=== PATIENT | female | born 1945 | race Caucasian/White ===

== ENCOUNTER 2019-10-05 07:01 | Inpatient (IN) ==
[2019-10-05 08:27] LABS: Basophils # 0.1 10*3/uL (0.0-0.2); Basophils % 0.7 % (0.0-0.8); Eosinophils # 0.1 10*3/uL (0.0-0.87); Eosinophils % 1.6 % (0.00-10.9); Hematocrit 37.6 VOL% (35.7-47.0); Hemoglobin 11.6 GM/DL (12.0-16.0); Immature Granulocytes % 0.3 %; Immature Granulocytes Absolute 0.02 #; Lymphocytes # 1.6 10*3/uL (1.4-4.0); Lymphocytes % 21.4 % (21.3-54.2); Mean Corpuscular HGB Conc 30.9 GM/DL (32-36); Mean Corpuscular Volume 89.7 FL (87-102); Mean Platelet Volume 9.5 FL (9.6-12.0); Monocytes % 10.4 % (1.7-12.7); Neutrophils % 65.6 % (38.7-73.9); Platelet Count 183 T/CUMM (130-400); Red Blood Count 4.19 MC/CUMM (3.8-5.5); Red Cell Distribution Width 13.8 % (9.3-17.3); White Blood Count 7.7 T/CUMM (4-12)
[2019-10-05 08:44] LABS: INR 1.1; PT Patient Result 11.4 SECS (9.6-12.2)
[2019-10-05 08:48] LABS: Apearance,Urine CLEAR (Clear); Bilirubin,Urine Negative (Negative); Blood, Urine Negative (Negative); Glucose,Urine (UA) Negative (Negative); Hyaline Casts,Urine 3 /LPF (0-3); Ketones,Urine 20 mg/dL (Negative); Mucus,Urine Occasional /LPF (Occasional); Nitrite,Urine Negative (Negative); Protein,Urine 30 MG/DL; RBC,Urine 1 /HPF (0-4); Squamous Epithelial Cell,Urine Occasional /HPF (0-10); Urine Color Yellow (Yellow); Urine Specific Gravity 1.025 (1.001-1.035); Urine Urobilinogen < 2.0 EU/DL (0.2-1.0); WBC,Urine 2 /HPF (0-6)
[2019-10-05 09:08] LABS: Albumin 3.4 G/DL (3.4-5.0); Bilirubin,Total 0.9 MG/DL (0.2-1.0); Calcium 9.2 MG/DL (8.5-10.1); Osmolality,Calculated 274.1 MOS/KG (273-304); Total Protein 6.6 G/DL (6.4-8.3)
[2019-10-05] MEDS: SODIUM CHLORIDE 0.9% 1,000 ML IV SCH (14:27)
[2019-10-05] MEDS: ENOXAPARIN 40 MG/0.4 ML SYRINGE SUBCUT SCH (14:27)
[2019-10-05] MEDS ORDERED: SODIUM CHLORIDE 0.9% 500 ML IV ONE (15:02)
[2019-10-05] MEDS ORDERED: DEXTROSE 50% 25 GM/50 ML VIAL IV PRN (15:05)
[2019-10-05] MEDS ORDERED: GLUCAGON 1 MG VIAL IM PRN (15:05)
[2019-10-05] MEDS: INSULIN REGULAR 100 UNIT/ML SUBCUT SCH ×2 (17:15→22:37)
[2019-10-05] MEDS: ONDANSETRON 4 MG/2 ML VIAL IV PRN (17:26)
[2019-10-05] MEDS: ALBUTEROL/IPRATROPIUM 3 ML NEB RESP TX SCH (20:26)
[2019-10-05] MEDS ORDERED: ATORVASTATIN 40 MG TABLET PO SCH (21:00)
[2019-10-05] MEDS: MAGNESIUM OXIDE 400 MG TABLET PO SCH (22:36)
[2019-10-05] MEDS: POTASSIUM CHLORIDE 10 MEQ TABLET PO SCH (22:37)
[2019-10-05] MEDS: CETIRIZINE 10 MG TABLET PO SCH (22:37)
[2019-10-05] MEDS: GABAPENTIN 600 MG TABLET PO SCH (22:37)
[2019-10-06] MEDS: ALBUTEROL/IPRATROPIUM 3 ML NEB RESP TX SCH ×4 (00:40→19:41)
[2019-10-06] MEDS: SODIUM CHLORIDE 0.9% 1,000 ML IV SCH ×2 (02:34→17:56)
[2019-10-06 02:55] LABS: Basophils % 0.7 % (0.0-0.8); Eosinophils # 0.1 10*3/uL (0.0-0.87); Eosinophils % 2.4 % (0.00-10.9); Hematocrit 31.4 VOL% (35.7-47.0); Hemoglobin 9.7 GM/DL (12.0-16.0); Lymphocytes # 1.9 10*3/uL (1.4-4.0); Lymphocytes % 41.2 % (21.3-54.2); Mean Corpuscular HGB Conc 30.9 GM/DL (32-36); Mean Corpuscular Volume 88.5 FL (87-102); Mean Platelet Volume 10.2 FL (9.6-12.0); Monocytes % 12.5 % (1.7-12.7); Neutrophils % 43.2 % (38.7-73.9); Platelet Count 142 T/CUMM (130-400); Red Blood Count 3.55 MC/CUMM (3.8-5.5); Red Cell Distribution Width 13.7 % (9.3-17.3); White Blood Count 4.6 T/CUMM (4-12)
[2019-10-06 03:39] LABS: Bilirubin,Total 0.6 MG/DL (0.2-1.0); Calcium 8.2 MG/DL (8.5-10.1); Osmolality,Calculated 282.1 MOS/KG (273-304); Total Protein 5.8 G/DL (6.4-8.3)
[2019-10-06 03:45] LABS: Risk Ratio 1.74; VLDL CHOLESTEROL 15.2 MG/DL
[2019-10-06] MEDS ORDERED: SODIUM CHLORIDE 0.9% 500 ML IV ONE (07:14)
[2019-10-06] MEDS ORDERED: MORPHINE INTRATHEC SCH (09:00)
[2019-10-06] MEDS ORDERED: VENLAFAXINE XR 75 MG CAPSULE PO SCH (09:00)
[2019-10-06] MEDS ORDERED: PROPRANOLOL LA 80 MG CAPSULE PO SCH (09:00)
[2019-10-06] MEDS ORDERED: DIVALPROEX ER 250 MG TABLET PO SCH (09:00)
[2019-10-06] MEDS: ACETAMINOPHEN 325 MG TABLET PO PRN (09:16)
[2019-10-06] MEDS: MULTIVITAMIN (OCUVITE) TABLET PO SCH (09:16)
[2019-10-06] MEDS: MAGNESIUM OXIDE 400 MG TABLET PO SCH ×2 (09:16→21:52)
[2019-10-06] MEDS: GABAPENTIN 600 MG TABLET PO SCH ×2 (09:16→21:44)
[2019-10-06] MEDS: PANTOPRAZOLE 40 MG TABLET PO SCH (09:17)
[2019-10-06] MEDS: POTASSIUM CHLORIDE 10 MEQ TABLET PO SCH ×2 (09:17→21:44)
[2019-10-06] MEDS: ASPIRIN CHEW 81 MG TABLET PO SCH (09:17)
[2019-10-06] MEDS: CHOLECALCIFEROL 1,000 UNIT TABLET PO SCH (09:17)
[2019-10-06] MEDS: ONDANSETRON 4 MG/2 ML VIAL IV PRN (09:33)
[2019-10-06] MEDS: INSULIN REGULAR 100 UNIT/ML SUBCUT SCH ×4 (09:55→21:53)
[2019-10-06] MEDS: ENOXAPARIN 40 MG/0.4 ML SYRINGE SUBCUT SCH (13:32)
[2019-10-06] MEDS: CETIRIZINE 10 MG TABLET PO SCH (21:52)
[2019-10-07] MEDS: ALBUTEROL/IPRATROPIUM 3 ML NEB RESP TX SCH ×4 (01:42→19:35)
[2019-10-07 04:37] LABS: Basophils % 0.8 % (0.0-0.8); Eosinophils # 0.1 10*3/uL (0.0-0.87); Eosinophils % 2.4 % (0.00-10.9); Hemoglobin 9.6 GM/DL (12.0-16.0); Immature Granulocytes % 0.3 %; Immature Granulocytes Absolute 0.01 #; Lymphocytes # 1.5 10*3/uL (1.4-4.0); Lymphocytes % 40.8 % (21.3-54.2); Mean Corpuscular Volume 91.4 FL (87-102); Monocytes % 11.9 % (1.7-12.7); Neutrophils % 43.8 % (38.7-73.9); Platelet Count 122 T/CUMM (130-400); Red Cell Distribution Width 13.8 % (9.3-17.3); White Blood Count 3.8 T/CUMM (4-12)
[2019-10-07 04:58] LABS: Calcium 8.5 MG/DL (8.5-10.1); Osmolality,Calculated 281.1 MOS/KG (273-304)
[2019-10-07] MEDS: INSULIN REGULAR 100 UNIT/ML SUBCUT SCH ×4 (09:02→21:56)
[2019-10-07] MEDS: MULTIVITAMIN (OCUVITE) TABLET PO SCH (09:04)
[2019-10-07] MEDS: GABAPENTIN 600 MG TABLET PO SCH ×2 (09:04→21:57)
[2019-10-07] MEDS: PANTOPRAZOLE 40 MG TABLET PO SCH (09:04)
[2019-10-07] MEDS: CHOLECALCIFEROL 1,000 UNIT TABLET PO SCH (09:04)
[2019-10-07] MEDS: ASPIRIN CHEW 81 MG TABLET PO SCH (09:04)
[2019-10-07] MEDS: MAGNESIUM OXIDE 400 MG TABLET PO SCH ×2 (09:04→21:56)
[2019-10-07] MEDS: VENLAFAXINE XR 75 MG CAPSULE PO SCH (09:05)
[2019-10-07] MEDS: DIVALPROEX ER 250 MG TABLET PO SCH (09:05)
[2019-10-07] MEDS: POTASSIUM CHLORIDE 10 MEQ TABLET PO SCH ×2 (09:05→21:57)
[2019-10-07] MEDS: PROPRANOLOL LA 80 MG CAPSULE PO SCH (09:05)
[2019-10-07] MEDS: ENOXAPARIN 40 MG/0.4 ML SYRINGE SUBCUT SCH (14:02)
[2019-10-07] MEDS: SODIUM CHLORIDE 0.9% 1,000 ML IV SCH (20:20)
[2019-10-07] MEDS: CETIRIZINE 10 MG TABLET PO SCH (21:55)
[2019-10-08] MEDS: ALBUTEROL/IPRATROPIUM 3 ML NEB RESP TX SCH ×5 (00:31→19:49)
[2019-10-08] MEDS: SODIUM CHLORIDE 0.9% 1,000 ML IV SCH ×4 (05:54→20:06)
[2019-10-08] MEDS: ONDANSETRON 4 MG/2 ML VIAL IV PRN (06:04)
[2019-10-08] MEDS: INSULIN REGULAR 100 UNIT/ML SUBCUT SCH ×4 (09:15→21:39)
[2019-10-08] MEDS: GABAPENTIN 600 MG TABLET PO SCH ×2 (09:21→21:40)
[2019-10-08] MEDS: PROPRANOLOL LA 80 MG CAPSULE PO SCH (09:21)
[2019-10-08] MEDS: POTASSIUM CHLORIDE 10 MEQ TABLET PO SCH ×2 (09:22→21:40)
[2019-10-08] MEDS: VENLAFAXINE XR 75 MG CAPSULE PO SCH (09:22)
[2019-10-08] MEDS: DIVALPROEX ER 250 MG TABLET PO SCH (09:22)
[2019-10-08] MEDS: CHOLECALCIFEROL 1,000 UNIT TABLET PO SCH (09:23)
[2019-10-08] MEDS: PANTOPRAZOLE 40 MG TABLET PO SCH (09:23)
[2019-10-08] MEDS: MAGNESIUM OXIDE 400 MG TABLET PO SCH ×2 (09:23→21:41)
[2019-10-08] MEDS: MULTIVITAMIN (OCUVITE) TABLET PO SCH (09:23)
[2019-10-08] MEDS: ASPIRIN CHEW 81 MG TABLET PO SCH (09:23)
[2019-10-08] MEDS: ENOXAPARIN 40 MG/0.4 ML SYRINGE SUBCUT SCH (12:38)
[2019-10-08] MEDS: CETIRIZINE 10 MG TABLET PO SCH (21:41)
[2019-10-09] MEDS: SODIUM CHLORIDE 0.9% 1,000 ML IV SCH (03:25)
[2019-10-09] MEDS: ACETAMINOPHEN 325 MG TABLET PO PRN ×2 (04:45→09:37)
[2019-10-09] MEDS: ALBUTEROL/IPRATROPIUM 3 ML NEB RESP TX SCH (08:10)
[2019-10-09 08:30] VITALS: BP 131/57
[2019-10-09] MEDS: PANTOPRAZOLE 40 MG TABLET PO SCH (09:37)
[2019-10-09] MEDS: MAGNESIUM OXIDE 400 MG TABLET PO SCH (09:37)
[2019-10-09] MEDS: POTASSIUM CHLORIDE 10 MEQ TABLET PO SCH (09:37)
[2019-10-09] MEDS: CHOLECALCIFEROL 1,000 UNIT TABLET PO SCH (09:37)
[2019-10-09] MEDS: ASPIRIN CHEW 81 MG TABLET PO SCH (09:37)
[2019-10-09] MEDS: MULTIVITAMIN (OCUVITE) TABLET PO SCH (09:38)
[2019-10-09] MEDS: DIVALPROEX ER 250 MG TABLET PO SCH (09:38)
[2019-10-09] MEDS: GABAPENTIN 600 MG TABLET PO SCH (09:38)
[2019-10-09] MEDS: INSULIN REGULAR 100 UNIT/ML SUBCUT SCH ×2 (09:38→13:37)
[2019-10-09] MEDS: VENLAFAXINE XR 75 MG CAPSULE PO SCH (09:38)
[2019-10-09] MEDS: PROPRANOLOL LA 80 MG CAPSULE PO SCH (11:52)
[2019-10-09] MEDS: ENOXAPARIN 40 MG/0.4 ML SYRINGE SUBCUT SCH (13:38)
== END 2019-10-09 15:00 | disposition home health service (06) | DRG 565 ==
LOC: EDUNIT# → EDBD → N.EDINP 07:01 → N.ED 07:01 → N.EDINP 13:30 → N.TELEN 13:53 → SUATTDRO 10-06 09:15
PROVIDERS: ADMIT Hospitalist; ATTEND Internal Medicine Nephrology

== ENCOUNTER 2022-01-05 06:07 | Inpatient (IN) ==
[~2022-01-05 06:07] MED LIST: CLINDAMYCIN INJ 900 MG/50 ML PREMIX IV ONE; VANCOMYCIN INJ 1,000 MG in SODIUM CHLORIDE 0.9% 250 ML IV ONE
[2022-01-05] MEDS ORDERED: propofoL 200 MG/20 ML VIAL IV ONE (06:26)
[2022-01-05] MEDS ORDERED: KETAMINE 500 MG/10 ML VIAL ONE (06:26)
[2022-01-05] MEDS ORDERED: LIDOCAINE 2% 5 ML VIAL ONE (06:26)
[2022-01-05] MEDS ORDERED: MIDAZOLAM 2 MG/2 ML VIAL ONE (06:26)
[2022-01-05] MEDS ORDERED: ONDANSETRON 4 MG/2 ML VIAL ONE (06:26)
[2022-01-05] MEDS ORDERED: fentaNYL 100 MCG/2 ML VIAL ONE (06:26)
[2022-01-05] MEDS ORDERED: BUPIVACAINE SPINAL 0.75% 2 ML AMP SPINAL ONE (06:29)
[2022-01-05] MEDS ORDERED: BACITRACIN OINT 0.9 GM PACK TOP ONE (06:38)
[2022-01-05] MEDS ORDERED: ROCURONIUM 50 MG/5 ML VIAL IV ONE (06:50)
[2022-01-05] MEDS ORDERED: BUPIVACAINE MPF 0.5% 30 ML VIAL ONE (06:54)
[2022-01-05] MEDS ORDERED: LIDOCAINE 1% 5 ML VIAL ONE (06:54)
[2022-01-05] MEDS ORDERED: LACTATED RINGERS 1,000 ML IV SCH (07:00)
[2022-01-05] MEDS ORDERED: ePHEDrine 50 MG/ML VIAL ONE (07:39)
[2022-01-05] MEDS ORDERED: TRANEXAMIC ACID 1,000 MG/10 ML VIAL ONE (08:06)
[2022-01-05] MEDS ORDERED: ACETAMINOPHEN INJ 1,000 MG/100 ML VIAL IV ONE (08:07)
[2022-01-05] MEDS ORDERED: SEVOFLURANE 1 UNIT/15 MINUTE INH ONE (08:10)
[2022-01-05] MEDS ORDERED: GLYCOPYRROLATE 0.4 MG/2 ML VIAL ONE (08:10)
[2022-01-05] MEDS ORDERED: NEOSTIGMINE 10 MG/10 ML VIAL ONE (08:11)
[2022-01-05] MEDS ORDERED: HYDROmorphone 2 MG/1 ML VIAL ONE (08:17)
[2022-01-05] MEDS ORDERED: PHENYLEPHRINE 1 MG/10 ML SYRINGE IV ONE (08:45)
[2022-01-05] MEDS ORDERED: HYDROmorphone 2 MG/1 ML VIAL IV PRN (09:00)
[2022-01-05] MEDS ORDERED: diphenhydrAMINE CAP 25 MG CAPSULE PO PRN (09:00)
[2022-01-05] MEDS ORDERED: CARBIDOPA/LEVODOPA 25-100 MG TABLET PO SCH (09:00)
[2022-01-05] MEDS ORDERED: GLUCAGON 1 MG VIAL IM PRN ×2 (09:03→16:44)
[2022-01-05 09:31] LABS: Mucus,Urine Occasional /LPF (Occasional); RBC,Urine <1 /HPF (0-4); Squamous Epithelial Cell,Urine Occasional /HPF (0-10)
[2022-01-05 09:32] LABS: Urine Appearance Clear (Clear); Urine Color Yellow (Yellow)
[2022-01-05 09:33] LABS: Bilirubin,Urine Negative (Negative); Blood, Urine Negative (Negative); Glucose,Urine (UA) Negative (Negative); Ketones,Urine Negative (Negative); Nitrite,Urine Negative (Negative); Protein,Urine Negative; Urine Specific Gravity 1.016 (1.001-1.035); Urine Urobilinogen 0.2 EU/DL (<2.0)
[2022-01-05] MEDS: HYDROmorphone 2 MG/1 ML VIAL IV PRN ×3 (10:04→15:05)
[2022-01-05] MEDS: ONDANSETRON 4 MG/2 ML VIAL IV PRN (10:05)
[2022-01-05] MEDS ORDERED: DEXTROSE 10% 250 ML BAG IV PRN ×2 (11:11→16:45)
[2022-01-05] MEDS ORDERED: PROMETHAZINE 25 MG TABLET PO PRN (12:00)
[2022-01-05] MEDS: LACTATED RINGERS 1,000 ML IV SCH ×2 (13:30→22:05)
[2022-01-05] MEDS: INSULIN LISPRO 100 UNIT/ML SUBCUT SCH ×3 (14:50→22:08)
[2022-01-05] MEDS: KETOROLAC 15 MG/1 ML VIAL IV SCH ×3 (14:50→22:09)
[2022-01-05] MEDS: CLINDAMYCIN INJ 900 MG/50 ML PREMIX IV SCH ×2 (15:05→22:07)
[2022-01-05] MEDS: CARBIDOPA/LEVODOPA 25-100 MG TABLET PO SCH (16:48)
[2022-01-05] MEDS: DOCUSATE SODIUM 100 MG CAPSULE PO SCH (21:15)
[2022-01-05] MEDS: CETIRIZINE 10 MG TABLET PO SCH (21:15)
[2022-01-05] MEDS: GABAPENTIN 600 MG TABLET PO SCH (21:15)
[2022-01-05] MEDS: MAGNESIUM OXIDE 400 MG TABLET PO SCH (21:15)
[2022-01-05] MEDS: FONDAPARINUX 2.5 MG/0.5 ML SYRINGE SUBCUT SCH (21:15)
[2022-01-05] MEDS: VENLAFAXINE XR 75 MG CAPSULE PO SCH (21:15)
[2022-01-05] MEDS: tiZANidine 4 MG TABLET PO SCH (21:15)
[2022-01-05] MEDS: ATORVASTATIN 40 MG TABLET PO SCH (21:15)
[2022-01-05] MEDS: metFORMIN 500 MG TABLET PO SCH (21:15)
[2022-01-06] MEDS: KETOROLAC 15 MG/1 ML VIAL IV SCH (04:06)
[2022-01-06 05:34] LABS: Basophils % 0.3 % (0.0-0.8); Eosinophils % 0.6 % (0.00-10.9); Hematocrit 25.9 VOL% (35.7-47.0); Hemoglobin 8.2 GM/DL (12.0-16.0); Immature Granulocytes % 0.3 %; Immature Granulocytes Absolute 0.01 #; Lymphocytes # 0.5 10*3/uL (1.4-4.0); Mean Corpuscular HGB Conc 31.7 GM/DL (32-36); Mean Corpuscular Volume 97.7 FL (87-102); Mean Platelet Volume 10.9 FL (9.6-12.0); Monocytes % 13.9 % (1.7-12.7); Neutrophils % 68.9 % (38.7-73.9); Platelet Count 105 T/CUMM (130-400); Red Blood Count 2.65 MC/CUMM (3.8-5.5); Red Cell Distribution Width 13.2 % (9.3-17.3); White Blood Count 3.4 T/CUMM (4-12)
[2022-01-06 05:37] LABS: Calcium 8.3 MG/DL (8.5-10.1); Osmolality,Calculated 270.2 MOS/KG (273-304)
[2022-01-06] MEDS: LACTATED RINGERS 1,000 ML IV SCH ×2 (06:05→16:58)
[2022-01-06] MEDS: HYDROmorphone 2 MG/1 ML VIAL IV PRN (08:17)
[2022-01-06] MEDS: metFORMIN 500 MG TABLET PO SCH ×2 (08:24→21:33)
[2022-01-06] MEDS: MULTIVITAMIN (OCUVITE) TABLET PO SCH (08:24)
[2022-01-06] MEDS: GLIMEPIRIDE 2 MG TABLET PO SCH (08:24)
[2022-01-06] MEDS: IRON (CARBONYL)/VIT C/B12/FA TABLET PO SCH (08:24)
[2022-01-06] MEDS: GABAPENTIN 600 MG TABLET PO SCH ×2 (08:24→21:34)
[2022-01-06] MEDS: CYANOCOBALAMIN 500 MCG TABLET PO SCH (08:25)
[2022-01-06] MEDS: FUROSEMIDE 40 MG TABLET PO SCH (08:25)
[2022-01-06] MEDS: CARBIDOPA/LEVODOPA 25-100 MG TABLET PO SCH ×4 (08:25→16:52)
[2022-01-06] MEDS: MAGNESIUM OXIDE 400 MG TABLET PO SCH ×2 (08:25→21:34)
[2022-01-06] MEDS: DOCUSATE SODIUM 100 MG CAPSULE PO SCH ×2 (08:25→21:34)
[2022-01-06] MEDS: DIVALPROEX ER 250 MG TABLET PO SCH (08:37)
[2022-01-06] MEDS: CHOLECALCIFEROL 1,000 UNIT TABLET PO SCH (08:37)
[2022-01-06] MEDS: SPIRONOLACTONE 50 MG TABLET PO SCH (08:37)
[2022-01-06] MEDS: NON-FORMULARY MEDICATION (Cranberry 500 mg Capsule) PO SCH (08:39)
[2022-01-06] MEDS: INSULIN LISPRO 100 UNIT/ML SUBCUT SCH ×4 (08:39→22:59)
[2022-01-06] MEDS ORDERED: lisinopriL 5 MG TABLET PO SCH (09:00)
[2022-01-06] MEDS ORDERED: MAGNESIUM HYDROXIDE SUSP 30 ML UDCUP PO PRN (09:00)
[2022-01-06] MEDS: ONDANSETRON 4 MG/2 ML VIAL IV PRN (10:04)
[2022-01-06] MEDS ORDERED: oxyCODONE/ACETAMINOPHEN 5-325 MG TABLET PO ONE (12:30)
[2022-01-06 13:32] LABS: Mucus,Urine Occasional /LPF (Occasional); RBC,Urine 1 /HPF (0-4); Squamous Epithelial Cell,Urine Occasional /HPF (0-10)
[2022-01-06 13:33] LABS: Bilirubin,Urine Negative (Negative); Blood, Urine Negative (Negative); Glucose,Urine (UA) Negative (Negative); Ketones,Urine Negative (Negative); Nitrite,Urine Negative (Negative); Protein,Urine Negative; Urine Appearance Clear (Clear); Urine Color Light Yellow (Yellow); Urine Urobilinogen 0.2 EU/DL (<2.0); Urine pH 5.5 (4.5-8.0)
[2022-01-06] MEDS: MORPHINE 4 MG/1 ML VIAL IV PRN ×2 (18:03→21:34)
[2022-01-06] MEDS: FONDAPARINUX 2.5 MG/0.5 ML SYRINGE SUBCUT SCH (21:33)
[2022-01-06] MEDS: VENLAFAXINE XR 75 MG CAPSULE PO SCH (21:33)
[2022-01-06] MEDS: ATORVASTATIN 40 MG TABLET PO SCH (21:34)
[2022-01-06] MEDS: CETIRIZINE 10 MG TABLET PO SCH (21:34)
[2022-01-06] MEDS: tiZANidine 4 MG TABLET PO SCH (21:34)
[2022-01-07] MEDS: LACTATED RINGERS 1,000 ML IV SCH (02:10)
[2022-01-07] MEDS: oxyCODONE/ACETAMINOPHEN 5-325 MG TABLET PO PRN ×3 (03:15→11:38)
[2022-01-07 05:53] LABS: Basophils % 0.4 % (0.0-0.8); Eosinophils # 0.1 10*3/uL (0.0-0.87); Eosinophils % 1.7 % (0.00-10.9); Hematocrit 25.3 VOL% (35.7-47.0); Hemoglobin 8.1 GM/DL (12.0-16.0); Immature Granulocytes % 0.4 %; Immature Granulocytes Absolute 0.02 #; Lymphocytes # 0.8 10*3/uL (1.4-4.0); Mean Corpuscular Volume 98.1 FL (87-102); Mean Platelet Volume 10.8 FL (9.6-12.0); Monocytes % 15.1 % (1.7-12.7); Neutrophils % 66.4 % (38.7-73.9); Platelet Count 113 T/CUMM (130-400); Red Blood Count 2.58 MC/CUMM (3.8-5.5); Red Cell Distribution Width 13.4 % (9.3-17.3); White Blood Count 5.2 T/CUMM (4-12)
[2022-01-07 05:54] LABS: Calcium 8.3 MG/DL (8.5-10.1); Osmolality,Calculated 271.1 MOS/KG (273-304); Potassium 4.4 MMOL/L (3.5-5.1)
[2022-01-07 06:24] LABS: Band Neutrophils 2 % (0-10); Eosinophils 2 % (0-10); Hypochromia Slight; Lymphocytes 21 % (20-55); Microcytosis 1+; Segmented Neutrophils 63 % (50-85); Total Cells Counted 100
[2022-01-07 06:25] LABS: Ovalocytes Slight; Platelet Estimate Adequate
[2022-01-07] MEDS ORDERED: MAGNESIUM SULF RIDER 4 GM/100 ML PREMIX IV PRN (06:55)
[2022-01-07] MEDS ORDERED: MAGNESIUM SULF RIDER 2 GM/50 ML PREMIX IV PRN (06:55)
[2022-01-07] MEDS: INSULIN LISPRO 100 UNIT/ML SUBCUT SCH ×4 (08:07→22:22)
[2022-01-07] MEDS: DIVALPROEX ER 250 MG TABLET PO SCH (09:01)
[2022-01-07] MEDS: CARBIDOPA/LEVODOPA 25-100 MG TABLET PO SCH ×4 (09:03→17:17)
[2022-01-07] MEDS: MAGNESIUM OXIDE 400 MG TABLET PO SCH ×2 (09:04→21:18)
[2022-01-07] MEDS: CYANOCOBALAMIN 500 MCG TABLET PO SCH (09:05)
[2022-01-07] MEDS: GABAPENTIN 600 MG TABLET PO SCH ×2 (09:05→21:18)
[2022-01-07] MEDS: CHOLECALCIFEROL 1,000 UNIT TABLET PO SCH (09:06)
[2022-01-07] MEDS: DOCUSATE SODIUM 100 MG CAPSULE PO SCH ×2 (09:07→21:18)
[2022-01-07] MEDS: SPIRONOLACTONE 50 MG TABLET PO SCH (09:19)
[2022-01-07] MEDS: metFORMIN 500 MG TABLET PO SCH ×2 (09:20→21:17)
[2022-01-07] MEDS: IRON (CARBONYL)/VIT C/B12/FA TABLET PO SCH (09:21)
[2022-01-07] MEDS: MULTIVITAMIN (OCUVITE) TABLET PO SCH (09:22)
[2022-01-07] MEDS: FUROSEMIDE 40 MG TABLET PO SCH (09:24)
[2022-01-07] MEDS: GLIMEPIRIDE 2 MG TABLET PO SCH (09:34)
[2022-01-07] MEDS: lisinopriL 5 MG TABLET PO SCH (09:36)
[2022-01-07] MEDS: NON-FORMULARY MEDICATION (Cranberry 500 mg Capsule) PO SCH (09:43)
[2022-01-07] MEDS: ONDANSETRON 4 MG/2 ML VIAL IV PRN (10:28)
[2022-01-07] MEDS: AZITHROMYCIN 250 MG TABLET PO SCH (11:38)
[2022-01-07] MEDS: MORPHINE 4 MG/1 ML VIAL IV PRN ×2 (13:28→21:23)
[2022-01-07] MEDS: VENLAFAXINE XR 75 MG CAPSULE PO SCH (21:17)
[2022-01-07] MEDS: ATORVASTATIN 40 MG TABLET PO SCH (21:18)
[2022-01-07] MEDS: CETIRIZINE 10 MG TABLET PO SCH (21:18)
[2022-01-07] MEDS: tiZANidine 4 MG TABLET PO SCH (21:18)
[2022-01-07] MEDS: FONDAPARINUX 2.5 MG/0.5 ML SYRINGE SUBCUT SCH (21:18)
[2022-01-08] MEDS: MORPHINE 4 MG/1 ML VIAL IV PRN (04:27)
[2022-01-08 05:33] LABS: Basophils % 0.5 % (0.0-0.8); Eosinophils # 0.1 10*3/uL (0.0-0.87); Eosinophils % 2.5 % (0.00-10.9); Hematocrit 26.7 VOL% (35.7-47.0); Hemoglobin 8.3 GM/DL (12.0-16.0); Immature Granulocytes % 0.4 %; Immature Granulocytes Absolute 0.02 #; Lymphocytes # 1.3 10*3/uL (1.4-4.0); Lymphocytes % 22.9 % (21.3-54.2); Mean Corpuscular HGB Conc 31.1 GM/DL (32-36); Mean Corpuscular Volume 97.8 FL (87-102); Mean Platelet Volume 10.9 FL (9.6-12.0); Monocytes % 12.7 % (1.7-12.7); Platelet Count 130 T/CUMM (130-400); Red Blood Count 2.73 MC/CUMM (3.8-5.5); Red Cell Distribution Width 13.3 % (9.3-17.3); White Blood Count 5.6 T/CUMM (4-12)
[2022-01-08 05:52] LABS: Calcium 8.2 MG/DL (8.5-10.1); Potassium 4.4 MMOL/L (3.5-5.1)
[2022-01-08] MEDS: INSULIN LISPRO 100 UNIT/ML SUBCUT SCH ×3 (06:59→16:11)
[2022-01-08] MEDS: oxyCODONE/ACETAMINOPHEN 5-325 MG TABLET PO PRN ×2 (08:19→09:58)
[2022-01-08] MEDS: CHOLECALCIFEROL 1,000 UNIT TABLET PO SCH (08:21)
[2022-01-08] MEDS: MULTIVITAMIN (OCUVITE) TABLET PO SCH (08:22)
[2022-01-08] MEDS: CYANOCOBALAMIN 500 MCG TABLET PO SCH (08:22)
[2022-01-08] MEDS: AZITHROMYCIN 250 MG TABLET PO SCH (08:22)
[2022-01-08] MEDS: SPIRONOLACTONE 50 MG TABLET PO SCH (08:22)
[2022-01-08] MEDS: metFORMIN 500 MG TABLET PO SCH (08:22)
[2022-01-08] MEDS: CARBIDOPA/LEVODOPA 25-100 MG TABLET PO SCH ×4 (08:22→17:05)
[2022-01-08] MEDS: GLIMEPIRIDE 2 MG TABLET PO SCH (08:23)
[2022-01-08] MEDS: NON-FORMULARY MEDICATION (Cranberry 500 mg Capsule) PO SCH (08:23)
[2022-01-08] MEDS: lisinopriL 5 MG TABLET PO SCH (08:23)
[2022-01-08] MEDS: FUROSEMIDE 40 MG TABLET PO SCH (08:23)
[2022-01-08] MEDS: IRON (CARBONYL)/VIT C/B12/FA TABLET PO SCH (08:23)
[2022-01-08] MEDS: GABAPENTIN 600 MG TABLET PO SCH (08:23)
[2022-01-08] MEDS: MAGNESIUM OXIDE 400 MG TABLET PO SCH (08:23)
[2022-01-08] MEDS: DOCUSATE SODIUM 100 MG CAPSULE PO SCH (08:23)
[2022-01-08] MEDS: DIVALPROEX ER 250 MG TABLET PO SCH (08:23)
[2022-01-08 16:38] VITALS: BP 138/50
== END 2022-01-08 20:09 | DRG 469 ==
LOC: N.OR 06:07 → N.SDSINP 06:08 → EDSTATUS 07:30 → N.SDSINP 09:00 → N.3E 14:12
PROVIDERS: ADMIT Orthopaedic Surgery; ATTEND Orthopaedic Surgery